=== PATIENT | female | born 1940 | race Caucasian/White ===

== ENCOUNTER 2017-04-04 06:32 | Day surgery (SDC) | payer OTHER ==
[~2017-04-04 06:32] MED LIST: COZAAR50 MG PO; EXELON1 EAC1 TD; HUMULIN 70100 UNIT/1; NORVASC5 MG PO; PRILOSEC10 MG PO; TOPROL XL25 M1 PO
[2017-04-04] MEDS ORDERED: DUI500 PO (12:37)
[2017-04-04] MEDS ORDERED: OXYC1TAB9 PO (12:37)
== END 2017-04-04 16:50 | disposition home or self-care (01) ==
LOC: CIR.AMB 06:32
DX: M75.121 Complete rotator cuff tear or rupture of right shoulder, not specified as traumatic (principal); M65.811 Other synovitis and tenosynovitis, right shoulder; S43.491A Other sprain of right shoulder joint, initial encounter; S46.211A Strain of muscle, fascia and tendon of other parts of biceps, right arm, initial encounter